=== PATIENT | female | born 1980 | race Caucasian/White ===

== ENCOUNTER 2023-06-03 15:17 | Emergency (ER) | payer BC ==
[2023-06-03 15:33] VITALS: PULSE 96; RESP 18; TEMP 99.1; BMI 26.6
[2023-06-03] MEDS ORDERED: DEXAMETHASONE SOD PHOSPHATE 10 MG/1 ML VIAL IM ONE (15:56)
[2023-06-03] MEDS ORDERED: diazePAM 5 MG TABLET PO ONE (15:56)
[2023-06-03] MEDS ORDERED: DEXAMETHASONE SOD PHOSPHATE 10 MG/1 ML VIAL ONE (16:20)
[2023-06-03] MEDS ORDERED: diazePAM 5 MG TABLET ONE (16:21)
[2023-06-03 16:38] LABS: HEMATOCRIT 39.9 % (32.4-45.2); MCH 26.1 pg (25.7-33.7); MCHC 32.6 g/dl (32.0-36.0); MEAN CELL VOLUME 80.2 fl (80-96); MEAN PLT VOLUME 9.3 fl (7.5-11.1); PLATELET COUNT 275.7 10^3/uL (134-434); RBC 4.98 10^6/uL (3.60-5.2); RDW 15.1 % (11.6-15.6); WHITE BLOOD COUNT 9.3 10^3/uL (4.0-10.8)
[2023-06-03 16:51] LABS: EPITHELIAL CELLS 0-5 /hpf
[2023-06-03 16:59] LABS: ALBUMIN 4.4 g/dl (3.4-5.0); BILIRUBIN,TOTAL 0.4 mg/dl (0.2-1); CALCIUM 9.5 mg/dl (8.5-10.1); CREATININE 0.7 mg/dl (0.6-1.3); POTASSIUM 3.9 mmol/L (3.5-5.1); TOT PROT 7.1 g/dl (6.4-8.2)
[2023-06-03] MEDS ORDERED: LIDOCAINE 5% TOPICAL PATCH TP ONE (17:27)
[2023-06-03] MEDS ORDERED: LIDOCAINE 5% TOPICAL PATCH ONE (17:34)
[2023-06-03] MEDS ORDERED: HYDROmorphone HCl 2 MG/ML VIAL IM ONE (18:46)
[2023-06-03] MEDS ORDERED: HYDROmorphone HCL/PF 1 MG/ML VIAL ONE (18:55)
[2023-06-03 20:13] VITALS: BP 146/98
[2023-06-03] MEDS ORDERED: LIDOCAINE PATCH REMOVAL MC ONE (22:00)
== END 2023-06-03 20:14 | disposition home or self-care (01) ==
LOC: FER 15:17
PROC: 3E023GC Introduction of Other Therapeutic Substance into Muscle, Percutaneous Approach (ICD-10-PCS; principal; 2023-06-03)
PROC: 3E023GC Introduction of Other Therapeutic Substance into Muscle, Percutaneous Approach (ICD-10-PCS; 2023-06-03)
DX: M54.50 Low back pain, unspecified (principal); G89.29 Other chronic pain
CPT/HCPCS: 36415; 72131-TC; 80053; 81003; 81015; 81025; 83690; 85027; 87086; 99284-25; J1100